=== PATIENT | male | born 1995 | race Caucasian/White ===

== ENCOUNTER 2017-10-15 05:34 | Day surgery (SDC) | payer OTHER ==
[2017-10-14 13:21] VITALS: BMI 30.2
[2017-10-15] MEDS ORDERED: LIDOCAINE HCL 1%, 10 MG/ML (20ML VIAL) ONE (07:08)
[2017-10-15] MEDS ORDERED: BUPIVACAINE HCL/PF 0.5% (5MG/ML) 10 ML VIAL ONE (07:08)
[2017-10-15] MEDS ORDERED: PROPOFOL 20 ML ONE ×2 (07:43)
[2017-10-15] MEDS ORDERED: SUCCINYLCHOLINE CHLORIDE 200 MG/10 ML VIAL ONE (07:44)
[2017-10-15] MEDS ORDERED: MIDAZOLAM HCL 2 MG/2 ML SINGLE DOSE VIAL ONE ×2 (07:44)
[2017-10-15] MEDS ORDERED: ceFAZolin SODIUM 1 GM VIAL ONE (08:16)
[2017-10-15] MEDS ORDERED: ceFAZolin SODIUM 1 GM VIAL IVPB ONE ×2 (08:18)
[2017-10-15] MEDS ORDERED: LIDOCAINE HCL 1%, 10 MG/ML (20ML VIAL) INF ONE (08:30)
[2017-10-15] MEDS ORDERED: BUPIVACAINE HCL/PF 0.5% (5MG/ML) 10 ML VIAL IJ ONE (08:30)
--- NOTE | 2017-10-15 08:56 | HP ---
Satellite [facility] - Chief Complaint Chief Complaint: left wrist mass - Past Medical History Allergies/Adverse Reactions: Allergies Allergy/AdvReac Type Severity Reaction Status Date / Time No Known Allergies Allergy Verified 10/14/17 13:16 - Current Medications Current Medications: Home Medications Medication Instructions Recorded Hydrocodone/Acetaminophen [[place] 1 each PO Q6H PRN #20 tablet MDD 4 10/15/17 5-325 Tablet] Satellite Physical Exam - Physical Examination Vital Signs: Vital Signs Period Temp Pulse Resp BP Sys/Amos Pulse Ox Last 24 Hr 98.5 F-98.5 F 61-61 20-20 128-128/70-70 97 General Appearance: Well Nourished, Well Developed, Alert & Oriented x3 ENT: Clear Lung: Normal air movement Heart: Regular rate & rhythm Extremities: Other (left wrist- + mass, + ttp, nvi) Neurological: Intact, Alert, Oriented Satellite Impression/Plan - Impression/Plan Impression: left wrist ganglion cyst Operative Procedure: left wrist ganglion cyst excision Date to be Performed: 10/15/17
--- NOTE | 2017-10-15 08:58 | OP ---
Operative Note - Note: Operative Date: 10/15/17 ([facility]) Pre-Operative Diagnosis: left wrist ganglion cyst Operation: left wrist ganglion cyst excision Post-Operative Diagnosis: Same as Pre-op Surgeon: Tonio Wray Take Up Supervisor: Slim Rome Anesthesiologist/CORN HUSKER MACHINE OPERATOR: Leah White Anesthesia: Local, MAC Specimens Removed: ganglion cyst Estimated Blood Loss (mls): 0 (tourniquet) Operative Report Dictated: Yes
[2017-10-15 09:21] VITALS: TEMP 97.9
--- NOTE | 2017-10-15 09:48 | OP ---
DATE OF OPERATION: 10/15/2017 PREOPERATIVE DIAGNOSIS: Left wrist ganglion cyst. POSTOPERATIVE DIAGNOSIS: Left wrist ganglion cyst. PROCEDURE: Excision of ganglion cyst, left wrist. SURGEON: Tonio Wray M.D. SPONGE FISHERMAN: Slim Rome M.D.; TAI CHI INSTRUCTOR ANESTHESIA: MAC with local injection of 14 mL of 0.5% Marcaine and 1% lidocaine mix. DRAINS: None. COMPLICATIONS: None. SPECIMEN: Mass, left wrist. FLUID REPLACEMENT: 500 mL. INDICATIONS: The patient is a 22-year-old male with the preoperative diagnosis of a large recurrent mass on the dorsal aspect of his left wrist. After understanding the potential risks, complications, alternatives and benefits of surgery versus nonsurgical treatment, the patient elected to undergo this procedure. He understands that even after surgical excision, there is a small chance of recurrence. DESCRIPTION OF PROCEDURE: The patient was brought to the operating room, peripheral IV placed and IV sedation given. One gram of IV Ancef was given. MAC anesthesia was induced. A tourniquet was applied to the left upper arm. The left upper extremity was prepped and draped in a sterile fashion, elevated, exsanguinated with an Esmarch bandage, and the tourniquet inflated to 250 mmHg. A longitudinal incision was made. The incision was made in this manner because the ganglion cyst was quite large. Subcutaneous hemostasis was achieved with bipolar cautery. Dissection was done with Littler scissors. There was a mass. It was an obvious ganglion cyst. Circumferential dissection was done with the curved LIttler scissors. I was able to find the stalk going down to and between the extensor retinaculum and tendons. It was decapitated at its base on the dorsal aspect of the carpus and cauterized. It was passed off the table as a specimen. The area was copiously irrigated and washed out, and again inspected. I did not see any other abnormal tissue. It was irrigated again. Closure was done with 4-0 undyed Vicryl in the deep dermal layer and final skin reapproximation was done with a running subcuticular 4-0 Biosyn stitch. The area was then washed and dried, and covered with Steri-Strips, 4 x 4 gauze, Webril and Coban. The tourniquet time was 15 minutes. There were no complications during the case. The patient was brought to the ambulatory recovery room in stable condition. Seble [id number]
[2017-10-15 10:52] VITALS: BP 120/70; PULSE 70
--- NOTE | 2017-10-16 16:40 | PATH ---
Surgical Pathology Report Patient Name: ARVIND GRADY Med. Rec. #: [id number] /Age/Gender: 1995 (Age: 22) / M Account: [id number] Location: [facility] SURGICAL Taken: 10/15/2017 Received: 10/15/2017 Reported: 10/16/2017 Physicians: Seble Dewitt M.D. Specimen(s) Received LEFT WRIST MASS Clinical History Left ganglion cyst Final Diagnosis LEFT WRIST MASS, REMOVAL: CONSISTENT WITH GANGLION CYST. Electronically Signed Shereen Bernal M.D. Gross Description Received in formalin, labeled "left wrist mass" is a 2.3 x 1.8 x 1.0 sent your intact cystic structure with thin clear translucent lining and filled with clear mucoid fluid. [employer] Guard Supervisor sections are submitted in one cassette. [facility]/10/15/2017
== END 2017-10-15 10:52 | disposition home or self-care (01) ==
LOC: JASU-SURG 05:34
PROVIDERS: ATTEND Orthopaedic Surgery
PROC: 0LB60ZZ Excision of Left Lower Arm and Wrist Tendon, Open Approach (ICD-10-PCS; principal; 2017-10-15 08:00)
DX: M67.432 Ganglion, left wrist (principal)
CPT/HCPCS: 88304-TC; 94760